=== PATIENT | female | born 1990 | race Caucasian/White ===

== ENCOUNTER 2019-01-09 09:06 | Emergency (ER) | payer MEDICAID ==
[2019-01-09] MEDS: FLUORESCEIN STRIP LEFT EYE (10:11)
[2019-01-09] MEDS: TETRACAINE 0.5% 4 ML OPH LEFT EYE (10:11)
== END 2019-01-09 11:24 | disposition home or self-care (01) ==
LOC: FTE 09:06
DX: H01.006 Unspecified blepharitis left eye, unspecified eyelid (principal)
CPT/HCPCS: 99283; Z7502